=== PATIENT | male | born 1945 | race Caucasian/White ===

== ENCOUNTER 2021-09-25 20:10 | Emergency (ER) | payer MEDICARE, OTHER ==
[~2021-09-25] VITALS: Ht 182.9 cm; Wt 99.8 kg
[2021-09-25] MEDS ORDERED: GABA300 PO (22:05)
[2021-09-25] MEDS ORDERED: ZOCOR20 MG PO (22:06)
[2021-09-25] MEDS ORDERED: FERSU300 (22:08)
[2021-09-25] MEDS ORDERED: EUTHYROX88 MCG PO (22:08)
[2021-09-25] MEDS ORDERED: TRAZ100 PO (22:09)
[2021-09-25] MEDS ORDERED: MIRALAX17 GM PO (22:10)
[2021-09-25] MEDS ORDERED: DULCOLAX400 MG/5 M PO (22:10)
== END 2021-09-25 23:30 | disposition home or self-care (01) ==
LOC: ER 20:10
DX: Z53.21 Procedure and treatment not carried out due to patient leaving prior to being seen by health care provider (principal)